=== PATIENT | male | born 1940 | race Caucasian/White ===

== ENCOUNTER 2017-09-27 10:06 | Day surgery (SDC) | payer MEDICARE, OTHER ==
[2017-09-26 14:04] LABS: BASOPHILS % (AUTO) 0.3 % (0-1); EOSINOPHILS # (AUTO) 0.2 X10'3 (0-0.9); EOSINOPHILS % (AUTO) 3.4 % (0-6); HEMATOCRIT 40.2 % (42.0-52.0); HEMOGLOBIN 13.6 g/dl (14.0-17.9); LYMPHOCYTES # (AUTO) 1.3 X10'3 (1.1-4.8); LYMPHOCYTES % (AUTO) 23.8 % (21-51); MEAN CORPUSCULAR HEMOGLOBIN 29.9 PG (27.0-31.0); MEAN CORPUSCULAR HGB CONC 33.8 % (33.0-36.5); MEAN CORPUSCULAR VOLUME 88.4 FL (78-98); MEAN PLATELET VOLUME 8.5 FL (7.4-10.4); MONOCYTES # (AUTO) 0.4 X10'3 (0-0.9); MONOCYTES % (AUTO) 8.2 % (2-12); NEUTROPHILS # (AUTO) 3.5 X10'3 (1.8-7.7); NEUTROPHILS % (AUTO) 64.3 % (42-75); PLATELET COUNT 151 X10'3 (140-440); RED BLOOD COUNT 4.55 X10'6 (4.70-6.10); RED CELL DISTRIBUTION WIDTH 13.6 % (11.5-14.5); WHITE BLOOD COUNT 5.4 X10'3 (4.5-11.0)
[2017-09-26 14:12] LABS: ALBUMIN 3.5 G/DL (3.4-5.0); ANION GAP 7 (8-16); BLOOD UREA NITROGEN 8 MG/DL (7-18); BUN/CREATININE RATIO 7.3 (5.4-32.0); CALCIUM 8.9 MG/DL (8.5-10.1); CHLORIDE 105 MMOL/L (99-107); CREATININE 1.09 MG/DL (0.60-1.10); GLUCOSE 86 MG/DL (70-104); POTASSIUM 3.7 MMOL/L (3.5-5.1); SODIUM 141 MMOL/L (135-145); TOTAL CARBON DIOXIDE 29.4 MMOL/L (24-32); eGFR 66 ML/MIN
[2017-09-26 14:13] LABS: PARTIAL THROMBOPLASTIN TIME 27 SECONDS (22-32); PROTHROMBIN TIME 10.7 SECONDS (9.0-12.0)
[2017-09-27] VITALS (11 sets, daily range): BP systolic 155–174; BP diastolic 68–89
[~2017-09-27] VITALS: Ht 172.7 cm; Wt 80.5 kg
[2017-09-27] MEDS ORDERED: diphenhydrAMINE 25mg capsule PO PRN (10:40)
[2017-09-27] MEDS ORDERED: LORazepam 0.5 MG tablet PO PRN (10:40)
[2017-09-27] MEDS ORDERED: normal saline 1000ml 1,000 ML IV SCH (10:40)
[2017-09-27] MEDS ORDERED: nitroGLYCERIN-Tridil 50MG/D5W 250 ML IV ONE (11:53)
[2017-09-27] MEDS ORDERED: midazolam 2 mg/2 ml injection ONE (11:53)
[2017-09-27] MEDS ORDERED: fentaNYL/PF 50MCG/1 ML 2ML syringe ONE (11:53)
[2017-09-27] MEDS ORDERED: heparin 1,000unit/ml 10ml vial 10 ML ONE (11:53)
[2017-09-27] MEDS ORDERED: iohexol 350MG/ML 100ml bottle IV ONE (11:54)
[2017-09-27] MEDS ORDERED: LIDOcaine 1% w/EPI 1:100,000 30ml vial (MDV) ONE (11:54)
[2017-09-27] MEDS ORDERED: iohexol 350 MG/ML 50ML vial IV ONE (11:54)
[2017-09-27] MEDS ORDERED: ATOR40TA PO (12:11)
[2017-09-27] MEDS ORDERED: CYAN250010 SL (12:11)
[2017-09-27] MEDS ORDERED: VENL75TA4 PO (12:11)
[2017-09-27] MEDS ORDERED: ZOL50T PO (12:11)
[2017-09-27] MEDS ORDERED: HYDR-565 PO (12:11)
[2017-09-27] MEDS ORDERED: ASPI-107 PO (12:11)
[2017-09-27] MEDS ORDERED: ROPI0.5T2 PO (12:11)
[2017-09-27] MEDS ORDERED: MAGN400C PO (12:11)
[2017-09-27] MEDS ORDERED: CHOL200012 PO (12:11)
[2017-09-27] MEDS ORDERED: GABA-532 PO (12:11)
[2017-09-27] MEDS ORDERED: HYDROcodone/acetaminophen 10/325mg tab PO PRN (13:40)
== END 2017-09-27 16:05 | disposition home or self-care (01) ==
LOC: SSTAY O 10:06
PROVIDERS: ATTEND Internal Medicine Cardiovascular Disease
DX: I25.118 Atherosclerotic heart disease of native coronary artery with other forms of angina pectoris (principal); E78.5 Hyperlipidemia, unspecified; I10 Essential (primary) hypertension; F32.9 Major depressive disorder, single episode, unspecified; F41.9 Anxiety disorder, unspecified; M19.90 Unspecified osteoarthritis, unspecified site; J44.9 Chronic obstructive pulmonary disease, unspecified; G89.29 Other chronic pain; F41.8 Other specified anxiety disorders; Z98.62 Peripheral vascular angioplasty status; Z79.01 Long term (current) use of anticoagulants; Z87.891 Personal history of nicotine dependence; Z98.52 Vasectomy status; Z86.79 Personal history of other diseases of the circulatory system; Z79.891 Long term (current) use of opiate analgesic; Z79.82 Long term (current) use of aspirin; Z95.5 Presence of coronary angioplasty implant and graft; Z79.899 Other long term (current) drug therapy; Z98.890 Other specified postprocedural states
CPT/HCPCS: 36415; 80048; 85025; 85610; 85730; 93005; 93458; 99152; 99153; A6257; C1760; C1769; C1894; J1644; J2250; J3010; J3490; J7030; Q0163; Q9967; A4620

== ENCOUNTER 2017-10-05 12:44 | Outpatient (CLI) | payer MEDICARE, OTHER ==
[2017-10-05] VITALS (21 sets, daily range): BP systolic 87–165; BP diastolic 53–91
[~2017-10-05 12:44] MED LIST: ASPI-107 PO; ATOR40TA PO; CHOL200012 PO; CYAN250010 SL; GABA-532 PO; HYDR-565 PO; MAGN400C PO; ROPI0.5T2 PO; VENL75TA4 PO; ZOL50T PO
== END 2017-10-05 23:59 | disposition home or self-care (01) ==
LOC: CARD DIAG 12:44
PROVIDERS: ATTEND Internal Medicine Cardiovascular Disease
DX: R42 Dizziness and giddiness (principal); I10 Essential (primary) hypertension; Z87.891 Personal history of nicotine dependence
CPT/HCPCS: 93660